=== PATIENT | male | born 1965 | race Caucasian/White ===

== ENCOUNTER 2019-07-03 11:11 | Emergency (ER) | payer BC ==
[~2019-07-03] VITALS: Ht 180.3 cm; Wt 118.2 kg
[2019-07-03 11:13] VITALS: BP 117/80; TEMP 97.9
[2019-07-03] MEDS ORDERED: PRISTIQ 50 MG T50 MG PO (11:24)
[2019-07-03 12:51] VITALS: PULSE 81
== END 2019-07-03 12:51 | disposition home or self-care (01) ==
LOC: COL.ER 11:11
DX: S62.102A Fracture of unspecified carpal bone, left wrist, initial encounter for closed fracture (principal); F32.9 Major depressive disorder, single episode, unspecified; Z87.442 Personal history of urinary calculi; W00.0XXA Fall on same level due to ice and snow, initial encounter; Y92.009 Unspecified place in unspecified non-institutional (private) residence as the place of occurrence of the external cause
CPT/HCPCS: Q4050